=== PATIENT | female | born 2000 | race Caucasian/White ===

== ENCOUNTER → 2020-07-11 | Outpatient (CLI) | payer OTHER ==
--- NOTE | 2020-07-11 17:25 | REP ---
INDICATION: PAIN BILATERAL KNEES COMPARISON: None TECHNIQUE: Five views each knee FINDINGS: The compartments are symmetric and relatively well maintained. There is no acute fracture or destructive osseous lesion. IMPRESSION: Within normal limits bilateral. <Electronically signed by Gerard Alvarenga > 07/11/20 [id number]
== END ==
LOC: M RAD 16:49
PROVIDERS: ATTEND Physician Assistant
DX: M25.561 Pain in right knee (principal); M25.562 Pain in left knee

== ENCOUNTER → 2020-07-28 | Outpatient (REF) | payer OTHER ==
[2020-07-28 18:17] LABS: HCG, SERUM QUALITATIVE NEGATIVE (NEGATIVE)
== END ==
LOC: M LAB REF 16:53
PROVIDERS: ATTEND Physician Assistant Medical
DX: N93.9 Abnormal uterine and vaginal bleeding, unspecified (principal)

== ENCOUNTER 2020-08-09 18:55 | Emergency (ER) | payer OTHER ==
[~2020-08-09] VITALS: Ht 165.1 cm; Wt 57.5 kg
[2020-08-09] MEDS ORDERED: SERT50TA29 PO (19:07)
[2020-08-09 19:27] LABS: URINE PREG TEST NEGATIVE (NEGATIVE)
--- NOTE | 2020-08-09 22:20 | REPVR ---
PROCEDURE INFORMATION: Exam: US Nonobstetric Pelvis; Complete Exam date and time: 08/09/2020 9:29 PM Age: 19 years old Clinical indication: Pelvic pain; Additional info: Pelvic pain, check iud placement TECHNIQUE: Imaging protocol: Transabdominal pelvic nonobstetric ultrasound. Complete exam. Real time ultrasound with image documentation. COMPARISON: No relevant prior studies available. FINDINGS: Uterus/cervix: The uterus measures 9.4 cm in length by 3.4 cm in AP dimension by 5.1 cm in transverse dimension. The uterus is anteverted. An IUD is noted within the central portion of the endometrium. The endometrium measures approximately 5 mm. Right adnexa: The right ovary measures 3 cm in length by 2.4 cm in thickness. Follicular cysts are noted of the left ovary. There is vascular flow the left ovary with no evidence of torsion. Left adnexa: The left ovary measures 3.2 cm in length by 2 cm in thickness and there are small follicular cysts. There is vascular flow of the left ovary with no evidence of torsion. Intraperitoneal space: No intraperitoneal fluid. Urinary bladder: Normal appearing urinary bladder. IMPRESSION: The IUD is in good position. Electronically signed by: Hernán Medina On 08/09/2020 22:19:36 PM
[2020-08-09 23:12] LABS: BASO # 0.1 10^3/uL (0.0-0.2); BASO % 0.6 % (0.0-1.0); EOS # 0.1 10^3/uL (0.0-0.5); EOS % 1.8 % (0.0-3.0); HEMATOCRIT 41.4 % (36.0-47.0); HEMOGLOBIN 13.3 g/dl (12.0-15.5); LYMPH % 37.7 % (24.0-44.0); MEAN CORPUSCULAR HEMOGLOBIN 27.8 pg (27.0-33.0); MEAN CORPUSCULAR HGB CONC 32.1 g/dl (32.0-36.5); MEAN CORPUSCULAR VOLUME 86.4 fl (80.0-96.0); MONO # 0.8 10^3/uL (0.0-0.8); MONO % 9.8 % (2.0-8.0); NEUTROPHILS # 3.9 10^3/uL (1.5-8.5); NEUTROPHILS % 49.8 % (36.0-66.0); PLATELET COUNT, AUTOMATED 322 10^3/uL (150-450); RED BLOOD COUNT 4.79 10^6/uL (4.00-5.40); WHITE BLOOD COUNT 7.8 10^3/uL (4.0-10.0)
[2020-08-09 23:46] LABS: ALBUMIN 4.1 GM/DL (3.2-5.2); ALT/SGPT 18 U/L (12-78); BILIRUBIN,DIRECT < 0.1 MG/DL (0.0-0.2); BILIRUBIN,TOTAL 0.2 MG/DL (0.2-1.0); BLOOD UREA NITROGEN 8 MG/DL (7-18); CALCIUM LEVEL 9.3 MG/DL (8.5-10.1); CARBON DIOXIDE LEVEL 27 MEQ/L (21-32); CHLORIDE LEVEL 106 MEQ/L (98-107); CREATININE FOR GFR 0.43 MG/DL (0.55-1.30); GLUCOSE, FASTING 85 MG/DL (70-100); LIPASE 127 U/L (73-393); POTASSIUM SERUM 4.2 MEQ/L (3.5-5.1); SODIUM LEVEL 139 MEQ/L (136-145); TOTAL PROTEIN 6.9 GM/DL (6.4-8.2)
[2020-08-10] MEDS ORDERED: ONDA4TAB6 PO (00:10)
[2020-08-10] MEDS ORDERED: ONDANSETRON 4 MG ORAL DISINTEGRATING TAB PO ONE (00:15)
[2020-08-10 00:44] VITALS: BP 118/73
== END 2020-08-10 00:47 | disposition home or self-care (01) ==
LOC: M ED 18:55
DX: R11.0 Nausea (principal); R10.2 Pelvic and perineal pain; Z97.5 Presence of (intrauterine) contraceptive device
CPT/HCPCS: 36415; 76830; 76856; 80048; 80076; 81001; 83690; 84703; 85025; 87210; 87490; 87590; 87661; 93976; 99283; Q0162